=== PATIENT | female | born 2000 | race Two or more races ===

== ENCOUNTER 2024-02-16 08:00 | Outpatient (CLI) | payer BC | END 2024-02-16 23:59 | disposition home or self-care (01) | LOC: LAB.N 08:00 | PROVIDERS: ATTEND Physician Assistant Medical | DX: Z32.01 Encounter for pregnancy test, result positive (principal) | CPT/HCPCS: 36415; 84702 ==

== ENCOUNTER 2024-02-27 08:00 | Outpatient (CLI) | payer BC | END 2024-02-27 23:59 | disposition home or self-care (01) | LOC: LAB.N 08:00 | PROVIDERS: ATTEND Physician Assistant Medical | DX: R10.9 Unspecified abdominal pain (principal) | CPT/HCPCS: 87086 ==